=== PATIENT | male | born 1955 | race Caucasian/White ===

== ENCOUNTER 2016-12-12 08:56 | Emergency (ER) | payer BC ==
[2016-12-12] MEDS ORDERED: Acetaminophen/oxyCODONE 325-5 MG Tab PO ONE (09:33)
--- NOTE | 2016-12-12 09:33 | EDM.PDOC ---
ED HPI GENERAL MEDICAL PROBLEM - General Chief Complaint: Upper Extremity Injury/Pain Stated Complaint: LEFT SHOULDER PAIN Time Seen by Provider: 12/12/16 09:23 Source of Information: Reports: Patient History Limitations: Reports: No Limitations - History of Present Illness INITIAL COMMENTS - FREE TEXT/NARRATIVE: 60-year-old male attends the ED with complaints of severe pain in his left upper shoulder. Been present for 2 days. No known injuries. More or less awoke with this pain 2 days ago. It is sharp and stabbing and better with certain movements but worse when he's standing or sitting. Better when he is lying down. No pain in his cervical spine. He has full unopposed range of motion of his arm. Pain is in the distribution of the upper shoulder trapezius muscle. Finds he gets some relief of the pushes hard at the base of his left skull. Again insertion site of the trapezius. 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 Cardiovascular History: Reports: Afib (Is on Eliquis for this.), High Cholesterol, Hypertension Oncologic (Cancer) History: Reports: Breast, Other (See Below) Other Oncologic History: was on Tamoxifen for five yrs, completed. 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 Denies: Chest Pain, Edema GI/Abdominal: Reports: No Symptoms Genitourinary: Reports: No Symptoms Musculoskeletal: Reports: Shoulder Pain Skin: Reports: No Symptoms (Reason for coming to the ED.) Neurological: Reports: No Symptoms ED EXAM, GENERAL - Physical Exam Exam: See Below Exam Limited By: No Limitations General Appearance: Alert, WD/WN, No Apparent Distress Throat/Mouth: Normal Inspection, Normal Lips, Normal Teeth, Normal Oropharynx Head: Atraumatic, Normocephalic Neck: Other (Pain is localized to the superior belly of the trapezius muscle and levator scapular muscle. I did identify suspect T2 rib head subluxation as this is maximal point of tenderness. This is likely the cause of the overlying muscle spasm. He has full unopposed range of motion of his cervical spine.) Respiratory/Chest: No Respiratory Distress, Lungs Clear, Normal Breath Sounds, No Accessory Muscle Use, Prolonged Expiration Cardiovascular: Normal Peripheral Pulses, Regular Rate, Rhythm, No Edema, No Gallop, No Murmur Peripheral Pulses: 1+: Carotid (L), Carotid (R), Brachial (L), Brachial (R), Radial (L), Radial (R), Femoral (L), Femoral (R), Popliteal (L), Popliteal (R), Posterior Tibial (L), Posterior Tibial (R), Dorsalis Pedis (L), Dorsalis Pedis ( R) Back Exam: Other (No other muscle spasm identified on palpation of the cervicals spine or the thoracic spine. Only overlying the T2) Extremities: Normal Inspection, Normal Range of Motion, Non-Tender, No Pedal Edema, Normal Capillary Refill, Other Neurological: Alert, Oriented (No evidence of any problems with his left shoulder in terms of all the rotator cuff tendons are intact.), CN II-XII Intact , Normal Cognition, Normal Gait Course - Vital Signs Last Recorded V/S: Last Vital Signs Temp 35.8 C 12/12/16 09:05 Pulse 62 12/12/16 09:05 Resp 17 12/12/16 09:05 BP 153/74 H 12/12/16 09:05 Pulse Ox 97 12/12/16 09:05 - Orders/Labs/Meds Meds: Medications Discontinued Medications Generic Name Dose Route Start Last Admin Trade Name Francisco PRN Reason Stop Dose Admin Oxycodone/Acetaminophen 1 tab 12/12/16 09:33 Percocet 325-5 Mg PO 12/12/16 09:34 ONETIME ONE Prednisone 30 mg 12/12/16 09:34 Prednisone PO 12/12/16 09:35 ONETIME ONE - Radiology Interpretation Free Text/Narrative:: 60-year-old male presents to the ED with 2 day history of pain in his left upper neck. No known injuries. Examination shows full unopposed range of motion of his cervical spine. No problems identified in the shoulder in terms of rotator cuff tendinopathy etc. He has pain well localized to the superior belly of the trapezius muscle and levator scapular muscle group. There is marked pain on palpation of the T2 spinous process. I suspect rib head subluxation in this area. I'm therefore going to send him to the chiropractor for manipulation ` health group will see him this morning. He is on Eliquis and therefore cannot take anti-inflammatories. Therefore try him on prednisone given him 30 mg by mouth now and then 20 twice daily for 5 more days. Percocet tablet 08/22/24 one tablet every 4-6 hours necessary for pain relief 10 tablets provided. Departure - Departure Time of Disposition: :34 Disposition: Home, Self-Care 01 Condition: Fair Clinical Impression: Trapezius muscle spasm - Discharge Information Prescriptions: Prednisone [IJD: predniSONE] 20 mg PO BID #10 tab oxyCODONE HCl/Acetaminophen [Percocet 5-325 mg Tablet] 1 - 2 each PO Q4H PRN # 10 tablet PRN Reason: pain relief. Referrals: Kya Tinajero [employer] [Primary Care Provider] - Forms: ED Department Discharge Additional Instructions: Evaluation the emergency room this morning in regards to pain throughout the left upper neck in the distribution of the trapezius and levator scapulae muscles. There is marked spasm of these muscles causing pain. There seems to be no problem with her cervical spine and certainly no performed related to the shoulder in terms of rotator cuff injury etc. Apply that there appears to be a rib head subluxation at the T2 level. The cause of the overlying muscle spasm. Ideally this needs to be treated by a chiropractor. [facility] and one of the guys will see you there this morning as soon as you arrived. Therefore members [phone] there are addresses for [address] Dr[address] Kuhn or Dr. Bishop will see you this morning. 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 Last about 4 hours.-Also Deltasone 30 mg was given in the ED.. You could take her next dose 20 mg after supper tonight. States take one tablet twice daily morning and bedtime for the next 5 days to clear up inflammation. 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 Usually things settle down after chiropractic take manipulation within a day or 2.
[2016-12-12] MEDS ORDERED: predniSONE 20 MG Tab PO ONE (09:34)
[2016-12-12 10:03] VITALS: BP 132/76
== END 2016-12-12 09:56 | disposition home or self-care (01) ==
LOC: JD.ED 08:56
DX: M62.830 Muscle spasm of back (principal); I10 Essential (primary) hypertension; E78.00 Pure hypercholesterolemia, unspecified; Z85.3 Personal history of malignant neoplasm of breast; I48.91 Unspecified atrial fibrillation
CPT/HCPCS: 99283; A9270

== ENCOUNTER 2018-08-26 06:57 | Emergency (ER) | payer BC ==
[2018-08-26] MEDS ORDERED: Oxymetazoline 0.05% Nasal Spray 30 ML Bottle ONE (07:21)
--- NOTE | 2018-08-26 08:13 | EDM.PDOC ---
ED HPI GENERAL MEDICAL PROBLEM - General Chief Complaint: ENT Problem Stated Complaint: NOSEBLEED Time Seen by Provider: 08/26/18 07:10 - History of Present Illness INITIAL COMMENTS - FREE TEXT/NARRATIVE: 62-year-old male presents emergency room with a nosebleed This started early this morning about an hour before coming into the emergency room. Upon arrival here he did not have control of this. Patient is on Eliquis for chronic A. fib. The patient has not had any palpitations or any other symptoms no chest pain chest pressure breathing difficulties or shortness of breath. The patient has had some mild nose bleeds easy to control the last couple of mornings. - Related Data Allergies Allergy/AdvReac Type Severity Reaction Status Date / Time No Known Allergies Allergy Verified 08/26/18 07:12 Home Meds: Home Meds Apixaban [Eliquis] 5 mg PO BID 08/26/18 [History] Past Medical History HEENT History: Reports: Impaired Vision Other HEENT History: wears eyeglasses. Cardiovascular History: Reports: Afib, High Cholesterol, Hypertension Oncologic (Cancer) History: Reports: Breast, Other (See Below) Other Oncologic History: was on Tamoxifen for five yrs, completed. Social & Family History - Tobacco Use Smoking Status *Q: Never Smoker Second Hand Smoke Exposure: No - Caffeine Use Caffeine Use: Reports: Soda - Recreational Drug Use Recreational Drug Use: No - Living Situation & Occupation Living situation: Reports: with Significant Other Occupation: Employed ED ROS ENT - Review of Systems Review Of Systems: See Below Constitutional: Reports: No Symptoms HEENT: Reports: Nosebleed Respiratory: Reports: No Symptoms Cardiovascular: Reports: No Symptoms GI/Abdominal: Reports: No Symptoms Neurological: Reports: No Symptoms ED EXAM, ENT - Physical Exam Exam: See Below Exam Limited By: No Limitations General Appearance: Alert, No Apparent Distress Nose: Other (Bleeding from the left naris appears to be anterior controlled with direct pressure.) Mouth/Throat: Normal Inspection, Other (He had scant amount of blood down the posterior pharynx this cleared after his bleeding stopped) Head: Atraumatic, Normocephalic Respiratory/Chest: No Respiratory Distress, Lungs Clear, Normal Breath Sounds Cardiovascular: No Edema, No Murmur, Irregularly Irregular GI/Abdominal: Normal Bowel Sounds, Soft, Non-Tender ED ENT PROCEDURES - Epistaxis Procedure Indication: Uncontrolled Recent anticoagulants/antiplatlets: Yes (Patient is on Eliquis he's had mild nosebleeds last several days) Uncontrolled HTN: No Recent septal/nasal surgery: No Site of bleeding: Left Nare Clearing of clots: Patient Blew Nose Topical Meds: Other (2 squirts of Afrin was used after he stopped bleeding and after he blew his nose this was done after 15 minutes of firm pressure squeezing the anterior nose from side to side. The direct pressure stopped the bleeding the patient tolerated everything fairly well) Course - Vital Signs Last Recorded V/S: Last Vital Signs Temp 36.0 C 08/26/18 07:00 Pulse 70 08/26/18 07:00 Resp 20 08/26/18 07:00 BP 155/101 H 08/26/18 07:00 Pulse Ox 96 08/26/18 07:00 - Orders/Labs/Meds Meds: Medications Discontinued Medications Generic Name Dose Route Start Last Admin Trade Name Ericq PRN Reason Stop Dose Admin Oxymetazoline HCl Confirm 08/26/18 07:21 Nasal Decongestant [place] Administered 08/26/18 07:22 Dose 30 ml .ROUTE .STK-MED ONE - Re-Assessments/Exams Free Text/Narrative Re-Assessment/Exam: 08/26/18 08:13 Patient presented with anterior nosebleed pretty brisk initially this was controlled with direct pressure. After direct pressure of the patient blew his nose removing a few clots. Then 2 squirts of Afrin were placed in the nose the patient was observed for an hour his vital signs remained stable he did not have any bleeding recurrence. He is no longer bleeding posterior pharynx is clear. We discussed lab work he is having this done next week a CBC disclosed to his bleeding would not be that accurate. He is not having any symptoms to suggest a problem. Departure - Departure Time of Disposition: 08:17 Disposition: Home, Self-Care 01 Clinical Impression: Anterior epistaxis - Discharge Information Instructions: Nosebleed, Adult Referrals: Fannie Gill PA-C [Primary Care Provider] - Forms: ED Department Discharge Additional Instructions: Return to emergency room if any questions problems worsening symptoms. Follow-up with your regular provider at the end of this week. Use Preparation H from a new tube to the inside of her nose as we discussed do not scrub or rub it on gently roll it on using a Q-tip. Do this several times a day. You may also use K-Y jelly small amount to the outside of the undersurface of the nose. If the bleeding returns apply direct pressure as we discussed in return to the emergency room
[2018-08-26 08:40] VITALS: BP 119/85
[2018-08-26] MEDS ORDERED: Oxymetazoline 0.05% Nasal Spray 30 ML Bottle NAS ONE (08:59)
== END 2018-08-26 08:35 | disposition home or self-care (01) ==
LOC: JD.ED 06:57
DX: R04.0 Epistaxis (principal); I48.91 Unspecified atrial fibrillation; I10 Essential (primary) hypertension; Z79.01 Long term (current) use of anticoagulants
CPT/HCPCS: 99282; 99283

== ENCOUNTER 2019-05-19 13:44 | Emergency (ER) | payer BC ==
[2019-05-19] MEDS ORDERED: Sodium Chloride 0.9% 1,000 ML ONE (14:00)
[2019-05-19] MEDS ORDERED: Sodium Chloride 0.9% 10 ML Syringe FLUSH PRN ×2 (14:12→14:32)
[2019-05-19] MEDS ORDERED: Iopamidol 612 MG/ML 100 ML Bottle IVPUSH ONE (14:12)
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
[2019-05-19] MEDS ORDERED: Sodium Chloride 0.9% 1,000 ML IV SCH (14:45)
--- NOTE | 2019-05-19 15:02 | CT ---
Head CT Technique: Multiple axial sections through the brain were obtained. Intravenous contrast was not utilized. Comparison: No prior intracranial imaging is available. Findings: Ventricles along with basal cisterns and sulci over the convexities are mildly prominent. No abnormal parenchymal densities are seen. No evidence of intracranial hemorrhage. No midline shift or mass effect is seen. Visualized paranasal sinuses show nothing acute. Mastoid sinuses shows minimal mucosal thickening on the left side. No acute calvarial finding is seen. Impression: 1. Mild generalized atrophy. 2. No acute intracranial abnormality is seen. 3. Minimal mastoid sinus finding which is believed to be incidental. Diagnostic code #2 Study was dictated in [place] Standard Time
--- NOTE | 2019-05-19 15:23 | CT ---
CT cervical spine Technique: Multiple axial sections were obtained from above C1 inferiorly to the top of T3. Reconstructed sagittal and coronal images were reviewed. Findings: Posterior skull base is intact. Disc space narrowing is noted throughout the cervical spine with anterior osteophytes. Anterior osteophytes most prominent at C5-C6. Mild posterior osteophytes are also noted. Diffuse degenerative apophyseal change is noted throughout the cervical spine. No fracture is identified. No acute subluxation is seen. Multiple levels of neural foraminal stenosis are noted throughout the cervical spine. Diffuse degenerative change is noted throughout the uncovertebral joints. Impression: 1. Diffuse degenerative change. 2. No acute fracture or acute subluxation is appreciated. Diagnostic code #2 Study was dictated in [place] Standard Time
--- NOTE | 2019-05-19 15:23 | CT ---
CT chest Technique: Multiple axial sections through the chest were obtained. Intravenous contrast was utilized. Comparison: No prior chest imaging. Findings: Heart is enlarged. Coronary artery calcification is seen. No pericardial thickening is seen. Aorta shows no aneurysm. Mediastinum and hilar regions show no abnormality. No axillary adenopathy is seen. Surgical clips are seen within the left axillary region. Lungs shows a small 4 mm nodule within the right lung base and within the right middle lobe. No acute parenchymal process is seen. No pulmonary contusion or hemorrhage is seen. No pleural effusions are seen. Several old healed left-sided rib fractures are noted. No acute fracture is appreciated. Slight degenerative spurring noted within the spine. No acute osseous finding is seen within the chest. Impression: 1. 2 small pulmonary nodules. These can be ignored if patient is not a smoker. If patient is a smoker recommend noncontrast chest CT study in one year. 2. Cardiomegaly and coronary artery calcification. 3. Nothing acute is appreciated. Diagnostic code #3 CT abdomen and pelvis Technique: Multiple axial sections were obtained from above the dome of the diaphragm inferiorly to the pubic symphysis. Intravenous contrast was utilized. No oral contrast has been given. Findings: Prostate gland is enlarged. Liver contains no focal abnormality. Spleen appears within normal limits. Adrenal glands show no nodule. Pancreas shows no discrete abnormality. Kidneys show symmetric contrast enhancement. Parapelvic cyst is noted within the lower left kidney measuring 2.5 cm. Aorta shows no aneurysm. No retroperitoneal adenopathy or mesenteric abnormalities are seen. No pelvic mass or adenopathy is seen. No free fluid or inflammatory change is seen. Hazy subcutaneous density is noted within the anterior lower abdominal wall possibly due to mild edema. Bone window settings were reviewed which shows degenerative change within the lower lumbar spine. Chronic spondylolytic defects are seen at L5-S1 with spondylolisthesis of 1 cm also seen at L5-S1. No acute osseous finding is seen. Delayed images shows contrast within the distal ureters and within the bladder. Appendix felt to be visualized and within normal limits. Impression: 1. Findings as noted above. 2. No acute intra-abdominal or intrapelvic abnormality is seen. Diagnostic code #2 Study was dictated in [place] Standard Time
[2019-05-19 16:41] VITALS: BP 149/87; PULSE 76
== END 2019-05-19 16:18 | disposition home or self-care (01) ==
LOC: JD.ED 13:44
DX: S00.01XA Abrasion of scalp, initial encounter (principal); R10.12 Left upper quadrant pain; M25.512 Pain in left shoulder; R07.89 Other chest pain; I48.91 Unspecified atrial fibrillation; I10 Essential (primary) hypertension; Z79.01 Long term (current) use of anticoagulants; V53.5XXA Driver of pick-up truck or van injured in collision with car, pick-up truck or van in traffic accident, initial encounter; Y92.410 Unspecified street and highway as the place of occurrence of the external cause
CPT/HCPCS: 36415; 70450; 71260; 72125; 74177; 80053; 82150; 85025; 85610; 85730; 86850; 86900; 86901; 93005; 96360; 99285; J7030; Q9967; 93010; 99283

== ENCOUNTER → 2020-10-13 | Day surgery (SDC) | payer MEDICARE, BC ==
--- NOTE | 2020-10-13 12:49 | CT ---
CT right knee Technique: Multiple axial sections were obtained through the right hip and right ankle. Additional axial views were obtained of the right knee with reconstructed coronal and sagittal images obtained. Comparison: No prior CT knee exam is available. Findings: Axial views of the right hip show nothing acute. Axial views of the right ankle show nothing acute. Patellofemoral joint shows narrowing as well as osteophytes. There is fairly severe medial joint space narrowing being noted. Lateral joint space shows some articular irregularity. Osteophyte are seen within the distal femoral notch as well as within the medial and lateral knees. Impression: 1. Degenerative change as described above most prominent within the right knee. Diagnostic code #2
== END ==
LOC: JD.CT 10:04
PROVIDERS: ATTEND Orthopaedic Surgery
DX: M17.0 Bilateral primary osteoarthritis of knee (principal)
CPT/HCPCS: 73700-26-RT; 73700-RT

== ENCOUNTER → 2020-10-13 | Day surgery (SDC) | payer MEDICARE, BC | LOC: JD.LAB 11:29 | PROVIDERS: ATTEND Orthopaedic Surgery | DX: Z01.812 Encounter for preprocedural laboratory examination (principal); M17.0 Bilateral primary osteoarthritis of knee | CPT/HCPCS: 87641 ==

== ENCOUNTER 2020-10-19 06:57 | Day surgery (SDC) | payer MEDICARE, BC ==
[~2020-10-19 06:57] MED LIST: Acetaminophen 325 MG Tab PO SCH; Lactated Ringers 1,000 ML IV SCH; Lidocaine 1%/Sod Bicarbonate in NS 8.4% 1 ML Syringe IDERM PRN; Morphine 8 MG, EPINEPHrine 0.3 MG, Cefuroxime 750 MG, Ketorolac 30 MG, Sodium Chloride ... PRN; Pregabalin 25 MG Cap PO SCH; Sodium Chloride 0.9% 10 ML Syringe FLUSH PRN; oxyCODONE ER 10 MG TAB.ER PO SCH
[2020-10-19] MEDS ORDERED: Lidocaine 1% 4 ML ONE (07:14)
[2020-10-19] MEDS ORDERED: Midazolam 1 MG/ML 2 ML SDV ONE ×2 (07:14→08:21)
[2020-10-19] MEDS ORDERED: fentaNYL 100 MCG/2 ML SDV ONE (07:14)
[2020-10-19] MEDS ORDERED: Propofol 200 MG/20 ML SDV ONE ×3 (07:14→09:35)
[2020-10-19] MEDS ORDERED: ceFAZolin 1 GM Vial ONE ×2 (07:15→08:05)
[2020-10-19] MEDS ORDERED: EPINEPHrine 1 MG/ML SDV ONE (07:20)
[2020-10-19] MEDS ORDERED: Ropivacaine 0.5% 5 MG/ML 30 ML SDV ONE (07:20)
--- NOTE | 2020-10-19 07:47 | PCM.PREANE ---
Preanesthetic Assessment - Procedure Proposed Procedure: right total knee arthroplasty - Anesthesia/Transfusion/Family Hx Anesthesia History: Prior Anesthesia Without Reaction Family History of Anesthesia Reaction: No Transfusion History: No Prior Transfusion(s) - Review of Systems General: No Symptoms Pulmonary: No Symptoms Cardiovascular: No Symptoms Gastrointestinal: No Symptoms Neurological: No Symptoms Other: Reports: None - Physical Assessment NPO Status Date: 10/18/20 NPO Status Time: 18:30 Vital Signs: 154/89 64 97% 18 Height: 6 ft 1 in Weight: 133.3 kg ASA Class: 3 Mental Status: Alert & Oriented x3 Airway Class: Mallampati = 1 Dentition: Reports: Normal Dentition Thyro-Mental Finger Breadths: 3 Mouth Opening Finger Breadths: 3 ROM/Head Extension: Full Lungs: Clear to Auscultation, Normal Respiratory Effort Cardiovascular: Regular Rate, Regular Rhythm - Allergies Allergies/Adverse Reactions: Allergies Allergy/AdvReac Type Severity Reaction Status Date / Time No Known Allergies Allergy Verified 10/19/20 07:33 - Blood Blood Available: No - Anesthesia Plan Beta Khoa: Metoprolol Med Last Dose Date: 10/19/20 Med Last Dose Time: 05:30 - Acknowledgements Anesthesia Type Planned: Spinal Pt an Appropriate Candidate for the Planned Anesthesia: Yes Alternatives and Risks of Anesthesia Discussed w Pt/Guardian: Yes Pt/Guardian Understands and Agrees with Anesthesia Plan: Yes PreAnesthesia Questionnaire HEENT History: Reports: Impaired Vision Other HEENT History: wears eyeglasses. Cardiovascular History: Reports: Afib, High Cholesterol, Hypertension, Other (See Below) Other Cardiovascular History: left ventricular hypertrophy, left atrial enlargement, history of cardioversion Respiratory History: Reports: Sleep Apnea (cpap) Gastrointestinal History: Reports: None Genitourinary History: Reports: Other (See Below) Other Genitourinary History: elevated PSA NEWS ASSISTANT History: Reports: None Musculoskeletal History: Reports: Arthritis, Gout, Other (See Below) Other Musculoskeletal History: right de quervain's tenosynovitis, left tibial plateau fracture Neurological History: Reports: None Psychiatric History: Reports: None, Other (See Below) Other Psychiatric History: insomnia Endocrine/Metabolic History: Reports: Obesity/BMI 30+ Hematologic History: Reports: None Immunologic History: Reports: None Oncologic (Cancer) History: Reports: Breast, Other (See Below) Other Oncologic History: was on Tamoxifen for five yrs, completed. Dermatologic History: Reports: Other (See Below) Other Dermatologic History: skin lesions with excisions - Past Surgical History Head Surgeries/Procedures: Reports: None Cardiovascular Surgical History: Reports: None Respiratory Surgical History: Reports: None GI Surgical History: Reports: Colonoscopy Female Surgical History: Reports: None Male Surgical History: Reports: None Endocrine Surgical History: Reports: None Neurological Surgical History: Reports: None Musculoskeletal Surgical History: Reports: Other (See Below) Other Musculoskeletal Surgeries/Procedures:: left knee surgery Oncologic Surgical History: Reports: Mastectomy Dermatological Surgical History: Reports: None - SUBSTANCE USE Tobacco Use Status *Q: Former Tobacco User Tobacco Use Within Last Twelve Months: No Second Hand Smoke Exposure: No Days Per Week of Alcohol Use: 2 Number of Drinks Per Day: 1 Total Drinks Per Week: 2 Recreational Drug Use History: No - HOME MEDS Home Medications: Home Meds Apixaban [Eliquis] 5 mg PO BID 08/26/18 [History] Acetaminophen [Tylenol] 650 mg PO Q4H PRN 10/18/20 [History] Clobetasol [Temovate 0.05%] 1 dose TOP ASDIRECTED PRN 10/18/20 [History] Cyclobenzaprine [Flexeril] 10 mg PO BID PRN #20 tab 10/18/20 [Rx] Finasteride [Proscar] 5 mg PO DAILY 10/18/20 [History] HCTZ/Triamterene [Maxzide 25-37.5 MG] 1 tab PO DAILY 10/18/20 [History] Metoprolol Succinate 50 mg PO BID 10/18/20 [History] Pravastatin [Pravachol] 20 mg PO DAILY 10/18/20 [History] allopurinoL [Zyloprim] 300 mg PO DAILY 10/18/20 [History] dilTIAZem HCL [Cardizem Cd] 240 mg PO DAILY 10/18/20 [History] lisinopriL [Prinivil] 40 mg PO DAILY 10/18/20 [History] oxyCODONE 5 - 10 mg PO Q4H PRN #40 tab 10/18/20 [Rx] - CURRENT (IN HOUSE) MEDS Current Meds: Current Medications Acetaminophen (Acetaminophen 325 Mg Tab) 975 mg PO ONETIME JIMMIE Stop: 10/19/20 14:00 Last Admin: 10/19/20 07:26 Dose: 975 mg Documented by: Morphine Sulfate 8 mg/Epinephrine HCl 0.3 mg/Cefuroxime Sodium 750 mg/Ketorolac Tromethamine 30 mg/Sodium Chloride 7.9 ml 0 mg .XX ASDIRECTED PRN PRN Reason: Pain Stop: 10/19/20 18:00 Lactated Ringer's (Ringers, Lactated) 1,000 mls @ 125 mls/hr IV ASDIRECTED JIMMIE Stop: 10/19/20 23:00 Last Admin: 10/19/20 07:15 Dose: 125 mls/hr Documented by: Lidocaine/Sodium Bicarbonate (Lidocaine 1%/Sod Bicarbonate In Ns 8.4% 1 Ml Syringe) 0.25 ml IDERM ONETIME PRN PRN Reason: Prior to IV Start Stop: 10/19/20 18:00 Last Admin: 10/19/20 07:15 Dose: 0.25 ml Documented by: Oxycodone HCl (Oxycodone Er 10 Mg Tab.Er) 10 mg PO ONETIME JIMMIE Stop: 10/19/20 14:00 Last Admin: 10/19/20 07:26 Dose: 10 mg Documented by: Pregabalin (Pregabalin 25 Mg Cap) 50 mg PO ONETIME JIMMIE Stop: 10/19/20 14:00 Last Admin: 10/19/20 07:26 Dose: 50 mg Documented by: Sodium Chloride (Sodium Chloride 0.9% 10 Ml Syringe) 10 ml FLUSH ASDIRECTED PRN PRN Reason: Keep Vein Open Stop: 10/19/20 18:00 Discontinued Medications Cefazolin Sodium (Cefazolin 1 Gm Vial) Confirm Administered Dose 2 gm .ROUTE .STK-MED ONE Stop: 10/19/20 07:16 Epinephrine HCl (Epinephrine 1 Mg/Ml Sdv) Confirm Administered Dose 1 mg .ROUTE .STK-MED ONE Stop: 10/19/20 07:21 Fentanyl (Fentanyl 100 Mcg/2 Ml Sdv) Confirm Administered Dose 100 mcg .ROUTE .STK-MED ONE Stop: 10/19/20 07:15 Lidocaine HCl (Xylocaine-Mpf 1%) Confirm Administered Dose 4 mls @ as directed .ROUTE .STK-MED ONE Stop: 10/19/20 07:15 Midazolam HCl (Midazolam 1 Mg/Ml 2 Ml Sdv) Confirm Administered Dose 2 mg .ROUTE .STK-MED ONE Stop: 10/19/20 07:15 Propofol (Propofol 200 Mg/20 Ml Sdv) Confirm Administered Dose 400 mg .ROUTE .STK-MED ONE Stop: 10/19/20 07:15 Ropivacaine (Ropivacaine 0.5% 5 Mg/Ml 30 Ml Sdv) Confirm Administered Dose 30 ml .ROUTE .STK-MED ONE Stop: 10/19/20 07:21 Tranexamic Acid (Tranexamic Acid 1,000 Mg/10 Ml Amp) Confirm Administered Dose 1,000 mg .ROUTE .STK-MED ONE Stop: 10/19/20 07:25 Vancomycin HCl (Vancomycin 1 Gm Sdv) Confirm Administered Dose 1 gm .ROUTE .STK- MED ONE Stop: 10/19/20 07:25
[2020-10-19] MEDS ORDERED: Lactated Ringers 1,000 ML ONE ×2 (08:30→09:24)
[2020-10-19] MEDS ORDERED: fentaNYL 100 MCG/2 ML SDV IVPUSH PRN (08:31)
[2020-10-19] MEDS ORDERED: HYDROmorphone 0.5 MG/0.5 ML Syringe IVPUSH PRN (08:31)
[2020-10-19] MEDS ORDERED: Ondansetron 4 MG/2 ML SDV IVPUSH PRN (08:31)
[2020-10-19] MEDS ORDERED: ePHEDrine 50 MG/ML SDV ONE (08:32)
[2020-10-19] MEDS: Vancomycin 1 GM SDV ONE ×2 (09:23→09:53)
[2020-10-19] MEDS ORDERED: Ketorolac 15 MG/ML SDV ONE (09:55)
--- NOTE | 2020-10-19 10:20 | PCM.POSTAN ---
POST ANESTHESIA ASSESSMENT - MENTAL STATUS Mental Status: Alert, Oriented - VITAL SIGNS Vital Signs: Last Vital Signs Temp 97.0 F 10/19/20 07:08 Pulse 64 10/19/20 07:08 Resp 18 10/19/20 07:08 BP 144/89 H 10/19/20 07:17 Pulse Ox 97 10/19/20 07:08 1015 112/67 98% 86 23 97.2 - RESPIRATORY Respiratory Status: Respiratory Rate WNL, Airway Patent, O2 Saturation Stable, Supplemental Oxygen - CARDIOVASCULAR CV Status: Pulse Rate WNL, Blood Pressure Stable - GASTROINTESTINAL GI Status: No Symptoms - PAIN Pain Score: 0 - POST OP HYDRATION Hydration Status: Adequate & Stable
--- NOTE | 2020-10-19 10:42 | PCM.SN.2 ---
- Free Text/Narrative Note: Right selective femoral nerve block at the adductor canal for post-procedure pain control under US guidance requested by Dr. Calero. Date: 10/19/2020 Time Out: 1025 Start: 1025 End: 103 Chart reviewed. Consent signed. Questions answered. Appropriate monitors applied. Time out performed. Right mid-shaft femur identified with ultrasound, scanning medially of femur, the femoral artery in the adductor canal visualized, and the femoral nerve located laterally to the artery. The skin was prepped lateral to the ultrasound probe with chlorahexadine times two. The 21ga 4 insulated block needle was inserted under direct ultrasound guidance into the adductor canal. 25mL of 0.5% ropivacaine with 1:200,000 epinephrine was injected circumferentially around the nerve with intermittent negative aspiration noted. Patient tolerated the procedure well. Sterile technique noted along with sterile gloves, mask, and sterile probe cover. See picture on progress note and vital signs on nurses notes. Block completed in PACU. Judith Castrejon CRNA
--- NOTE | 2020-10-19 11:33 | CR ---
Right knee: AP and lateral views of the right knee were obtained. Comparison: Prior right knee CT study of 10/13/20. Knee prosthesis is seen. Components are aligned. Patellar prosthesis is also noted. Soft tissue air is seen. Impression: 1. Satisfactory post-op radiographic appearance of recently placed right knee prostheses. Diagnostic code #1
[2020-10-19] MEDS ORDERED: oxyCODONE 5 MG Tab PO PRN (11:40)
[2020-10-19] MEDS ORDERED: Cyclobenzaprine 10 MG Tab PO ONE (12:00)
--- NOTE | 2020-10-19 13:58 | PCM48HPAN ---
Post Anesthesia Note - EVALUATION WITHIN 48HRS OF ANESTHETIC Vital Signs in Normal Range: Yes Patient Participated in Evaluation: No (Visited with nurse- just left) Respiratory Function Stable: Yes Airway Patent: Yes Cardiovascular Function Stable: Yes Hydration Status Stable: Yes Pain Control Satisfactory: Yes Nausea and Vomiting Control Satisfactory: Yes Mental Status Recovered: Yes Vital Signs: Last Vital Signs Temp 98.0 F 10/19/20 11:15 Pulse 86 10/19/20 12:02 Resp 17 10/19/20 12:02 BP 132/86 10/19/20 12:02 Pulse Ox 93 L 10/19/20 12:02
[2020-10-19 15:19] VITALS: BP 129/71; PULSE 76
--- NOTE | 2020-10-26 12:56 | PCM.OPNOTE ---
- General Post-Op/Procedure Note Date of Surgery/Procedure: 10/19/20 Operative Procedure(s): right total knee arthroplasty with styker chin robotic assist Pre Op Diagnosis: right knee osteoarthritis Post-Op Diagnosis: Same Anesthesia Technique: Local, MAC, Spinal Primary Surgeon: Rudi Calero Anesthesia Provider: Judith Castrejon Teaching Fellow: Marlen Villavicencio Teaching Fellow: Annamarie De Dios EBL in mLs: 200 Complications: None Condition: Good Free Text/Narrative:: 10/26 9mm 35x10
--- NOTE | 2020-10-27 12:42 | OR ---
DATE OF OPERATION: 10/19/2020 SURGEON: Rudi Calero MD OPERATION PERFORMED: Right total knee arthroplasty with [place] robotic assist. PREOPERATIVE DIAGNOSIS: Right knee osteoarthrosis. POSTOPERATIVE DIAGNOSIS: Right knee osteoarthrosis. ANESTHESIA: Local MAC with spinal. ANESTHESIA PROVIDER: Judith Castrejon CRNA. ASSISTANTS: Marlen Villavicencio PA-C, and Annamarie De Dios LPN. ESTIMATED BLOOD LOSS: 200 mL. COMPLICATIONS: None. CONDITION: Stable. IMPLANTS: 1. April size 7 press-fit CR femur. 2. [place] size 7 press-fit tibial baseplate. 3. [place] size 7 9 mm CS polyethylene insert. 4. April size 35 x 10 mm press-fit patella. DESCRIPTION OF PROCEDURE: The patient was identified in the preoperative holding area. Proper site was marked and identified by the surgeon. The patient was taken back to the operating theater where after anesthesia, the patient had a nonsterile tourniquet applied to the right lower extremity. Right lower extremity was then sterilely prepped and draped in the usual sterile fashion. OR time-out was performed. Patient received 2 g IV Ancef. Right lower extremity was then exsanguinated. Tourniquet was insufflated to 250 mm mmHg. Standard anterior incision was made. Medial parapatellar arthrotomy was created. Deep fibers of the MCL were raised and anterior fat pad was resected. At this time, attention was turned to the patella. Patella measured 25 dissected to 14 for 35 x 10 mm patella. Drill holes were drilled, found to be adequate. At this time, attention was turned to the femur. Two 4.0 Schanz pins were then placed intra- incisionally in the femur for the April [place] robotic array. Another two were placed in the tibia 3 fingerbreadths below the tibial tubercle for the tibial [place] Juan [place] robotic array. Checkpoints were placed in the femur and the tibia. Hip center rotation was obtained. Medial and lateral malleoli were marked. The check points were then marked. 40 points were then obtained off both the femur and the tibia for the [place] robotic plan. The patient's knee was brought to full extension. It was noted to be lacking roughly 6 degrees of extension. Varus valgus stresses were applied and then at 90 degrees of flexion, varus valgus stresses were applied. The patient was brought to 20 mm extension and flexion gaps. A straight saw blade was then brought down the [employer] robotic arm. The tibial cut was completed as well as posterior femoral cut, anterior femoral cut and anterior chamfer cut. A saw blade was then switched and the distal femoral cut as well as posterior chamfer cut was completed and found to be adequate. All bony fragments were removed. Medial and lateral menisci were resected. Posterior osteophytes were removed. At this time, size 7 base plate was placed and size 7 trial femur was placed. The patient had a 9 mm poly placed. The patient had full extension, full flexion, no signs of liftoff. Femoral drill holes were then drilled and found to be adequate. The tibia was stamped and drilled in the proper rotation. All trial implants were removed. The size 7 tibia was then impacted into place, size 7 femur was impacted into place, 9 mm CS polyethylene insert was placed. The patient's knee was brought into full extension. A 35 x 10 mm patellar was then press-fit into place. The tourniquet was deflated. Bleeders were cauterized. 1 L pulse lavage irrigation with Ancef was irrigated through the knee along with 400 mL Irrisept irrigation. Topical tranexamic acid and vancomycin powder as well as a periarticular injection was completed. #2 barbed suture was used for closure of the medial parapatellar arthrotomy. 2-0 Vicryl and Stratafix was used for subcutaneous closure. Pinning was used for skin closure. The patient tolerated the procedure well and was sent to the PACU in stable condition. MINA /[id number]
== END 2020-10-19 13:51 | disposition home or self-care (01) ==
LOC: JD.SDS 06:57
PROVIDERS: ATTEND Orthopaedic Surgery
DX: M17.0 Bilateral primary osteoarthritis of knee (principal); M25.761 Osteophyte, right knee; I10 Essential (primary) hypertension; E78.5 Hyperlipidemia, unspecified; M10.9 Gout, unspecified; Z87.891 Personal history of nicotine dependence; Z85.3 Personal history of malignant neoplasm of breast
CPT/HCPCS: 27447; 73560; 97110; 97116; 97161; A9270; C1713; C1776; J0171; J0690; J0697; J1885; J2250; J2270; J2704; J2795; J3010; J3370; J7120; 01402; 64450; 76942

== ENCOUNTER 2021-10-26 07:40 | Day surgery (SDC) | payer MEDICARE, BC ==
[~2021-10-26 07:40] MED LIST changes: -Acetaminophen 325 MG Tab PO SCH; +EPINEPHrine 1 MG/ML SDV ONE; -Pregabalin 25 MG Cap PO SCH; +Ropivacaine 0.5% 5 MG/ML 30 ML SDV ONE; +Scopolamine 1.5 MG Transdermal Patch TRDERM PRN; +Sodium Chloride 0.9% 10 ML Syringe FLUSH SCH; +Vancomycin 1 GM SDV ONE; -oxyCODONE ER 10 MG TAB.ER PO SCH
[2021-10-26] MEDS ORDERED: Lactated Ringers 1,000 ML ONE (07:55)
[2021-10-26] MEDS ORDERED: Lidocaine 1% 4 ML ONE (07:55)
[2021-10-26] MEDS ORDERED: Midazolam 1 MG/ML 2 ML SDV ONE ×2 (07:55→09:33)
[2021-10-26] MEDS ORDERED: ceFAZolin 2 GM Vial ONE ×2 (07:55→08:16)
[2021-10-26] MEDS ORDERED: Ondansetron 4 MG/2 ML SDV ONE (07:55)
[2021-10-26] MEDS ORDERED: Ketorolac 30 MG/ML SDV ONE (07:55)
[2021-10-26] MEDS ORDERED: fentaNYL 100 MCG/2 ML SDV ONE (07:55)
[2021-10-26] MEDS ORDERED: Propofol 200 MG/20 ML SDV ONE ×2 (07:55→10:03)
[2021-10-26] MEDS ORDERED: Ketamine 500 mg/10 ML MDV ONE (07:56)
[2021-10-26] MEDS ORDERED: ePHEDrine 50 MG/ML SDV ONE (07:58)
[2021-10-26] MEDS ORDERED: diphenhydrAMINE 50 MG/ML SDV ONE (08:20)
[2021-10-26] MEDS ORDERED: Dexamethasone 4 MG/ML 5 ML MDV ONE (08:21)
[2021-10-26] MEDS ORDERED: fentaNYL 100 MCG/2 ML SDV IVPUSH PRN (09:13)
[2021-10-26] MEDS ORDERED: HYDROmorphone 0.5 MG/0.5 ML Syringe IVPUSH PRN (09:13)
[2021-10-26] MEDS ORDERED: ePHEDrine 50 MG/ML SDV IVPUSH PRN (09:13)
[2021-10-26] MEDS ORDERED: Metoclopramide 10 MG/2 ML SDV IV PRN (09:13)
[2021-10-26] MEDS ORDERED: Ondansetron 4 MG/2 ML SDV IVPUSH PRN (09:13)
[2021-10-26 12:10] VITALS: BP 125/89
[2021-10-26] MEDS ORDERED: oxyCODONE 5 MG Tab PO PRN (12:10)
[2021-10-26 13:08] VITALS: PULSE 50
== END 2021-10-26 13:35 | disposition home or self-care (01) ==
LOC: JD.SDS 07:40
PROVIDERS: ATTEND Orthopaedic Surgery
DX: M17.12 Unilateral primary osteoarthritis, left knee (principal); I10 Essential (primary) hypertension; I48.20 Chronic atrial fibrillation, unspecified; M10.9 Gout, unspecified; G47.33 Obstructive sleep apnea (adult) (pediatric); E78.00 Pure hypercholesterolemia, unspecified; E66.9 Obesity, unspecified; Z79.899 Other long term (current) drug therapy; Z79.01 Long term (current) use of anticoagulants; Z88.5 Allergy status to narcotic agent; Z68.37 Body mass index [BMI] 37.0-37.9, adult
CPT/HCPCS: 01402; 64447; 73560-26-LT; 73560-LT; 76942; 97110-GP; 97116-GP; 97161-GP; A9270-GY; C1713; C1776; J0171; J0690; J0697; J1100; J1200; J1885; J2250; J2270; J2405; J2704; J2795; J3010; J3370; J3490; J7120

== ENCOUNTER 2021-10-30 10:35 | Emergency (ER) | payer MEDICARE, BC ==
[2021-10-30] MEDS ORDERED: Lidocaine 2% 11 ML Jelly Filled Syringe ONE (10:55)
[2021-10-30] MEDS ORDERED: Lidocaine 2% 11 ML Jelly Filled Syringe MUCMEM STA (11:12)
[2021-10-30 12:47] VITALS: BP 122/70; PULSE 88
== END 2021-10-30 12:40 | disposition home or self-care (01) ==
LOC: JD.ED 10:35
DX: R33.9 Retention of urine, unspecified (principal); E78.00 Pure hypercholesterolemia, unspecified; I10 Essential (primary) hypertension; E66.9 Obesity, unspecified; Z68.37 Body mass index [BMI] 37.0-37.9, adult; Z88.5 Allergy status to narcotic agent; Z79.01 Long term (current) use of anticoagulants; Z79.899 Other long term (current) drug therapy
CPT/HCPCS: 51702; 81001; 99284; A9270

== ENCOUNTER 2021-11-02 17:01 | Emergency (ER) | payer MEDICARE, BC ==
[2021-11-02] MEDS ORDERED: Lidocaine 2% 11 ML Jelly Filled Syringe ONE (17:31)
[2021-11-02 17:50] VITALS: BP 136/98; PULSE 85
[2021-11-02] MEDS ORDERED: Levofloxacin 250 MG Tab PO ONE (18:17)
[2021-11-02] MEDS ORDERED: Lidocaine 2% 11 ML Jelly Filled Syringe MUCMEM ONE (18:18)
== END 2021-11-02 18:58 | disposition home or self-care (01) ==
LOC: JD.ED 17:01
DX: N40.1 Benign prostatic hyperplasia with lower urinary tract symptoms (principal); R33.8 Other retention of urine; E78.00 Pure hypercholesterolemia, unspecified; I10 Essential (primary) hypertension; E66.9 Obesity, unspecified; Z68.37 Body mass index [BMI] 37.0-37.9, adult; Z88.5 Allergy status to narcotic agent; Z79.01 Long term (current) use of anticoagulants; Z79.899 Other long term (current) drug therapy
CPT/HCPCS: 51702; 99283; A9270

== ENCOUNTER 2021-12-09 16:46 | Emergency (ER) | payer MEDICARE, BC ==
[2021-12-09] MEDS ORDERED: Ondansetron 4 MG/2 ML SDV IVPUSH ONE (17:09)
[2021-12-09] MEDS ORDERED: Sodium Chloride 0.9% 1,000 ML IV ONE ×3 (17:09→20:48)
[2021-12-09] MEDS ORDERED: Sodium Chloride 0.9% 10 ML Syringe FLUSH PRN (17:09)
[2021-12-09 17:52] LABS: CORONAVIRUS COVID-19 NAA NEGATIVE (NEGATIVE)
[2021-12-09] MEDS ORDERED: Levofloxacin/Dextrose 5%-Water 750 MG in Premix Bag 1 BAG IV ONE (19:41)
[2021-12-09] MEDS ORDERED: Furosemide 40 MG/4 ML VIAL IVPUSH ONE (19:51)
[2021-12-09 20:32] VITALS: PULSE 102
[2021-12-09] MEDS ORDERED: Ondansetron 4 MG Tab.DIS PO ONE (21:29)
[2021-12-10 01:46] VITALS: BP 113/97
== END 2021-12-09 22:00 | disposition home or self-care (01) ==
LOC: JD.ED 16:46
DX: N30.00 Acute cystitis without hematuria (principal); I10 Essential (primary) hypertension; I48.91 Unspecified atrial fibrillation; E78.00 Pure hypercholesterolemia, unspecified; Z88.6 Allergy status to analgesic agent; Z68.35 Body mass index [BMI] 35.0-35.9, adult; Z20.822 Contact with and (suspected) exposure to COVID-19
CPT/HCPCS: 0240U; 36415; 74176; 80053; 81001; 83605; 85025; 86140; 87040; 87086; 96361; 96365; 96375; 99284; A9270; J1940; J1956; J2405; J3490; J7030; 87088; 87186

== ENCOUNTER 2021-12-11 14:53 | Emergency (ER) | payer MEDICARE, BC ==
[2021-12-11 15:04] VITALS: BP 125/78; PULSE 93
[2021-12-11] MEDS ORDERED: Sodium Chloride 0.9% 10 ML Syringe FLUSH PRN (15:33)
[2021-12-11] MEDS ORDERED: Sodium Chloride 0.9% 1,000 ML IV ONE ×2 (15:36→17:11)
[2021-12-11] MEDS ORDERED: Potassium Chloride 20 MEQ Tab.ER PO ONE (16:14)
[2021-12-11] MEDS: Potassium Chloride 10 MEQ in Premix Bag 1 BAG IV SCH ×4 (16:37→19:42)
== END 2021-12-11 21:00 | disposition home or self-care (01) ==
LOC: JD.ED 14:53
DX: N40.1 Benign prostatic hyperplasia with lower urinary tract symptoms (principal); R33.8 Other retention of urine; E87.6 Hypokalemia; M10.9 Gout, unspecified; E66.9 Obesity, unspecified; Z68.35 Body mass index [BMI] 35.0-35.9, adult; Z88.5 Allergy status to narcotic agent; Z79.01 Long term (current) use of anticoagulants; Z79.899 Other long term (current) drug therapy
CPT/HCPCS: 36415; 51702; 80053; 81001; 83605; 83735; 85025; 86140; 87086; 96361; 96365; 96366; 99285; A9270; J3480; J3490; J7030; 99283

== ENCOUNTER 2022-09-09 15:19 | Emergency (ER) | payer MEDICARE, BC ==
[2022-09-09 15:34] VITALS: BP 159/82; PULSE 50
[2022-09-09] MEDS ORDERED: Diphtheria,Pertussis(Acell),Tetanus Vaccine 0.5 ML Syringe IM ONE (15:57)
== END 2022-09-09 17:25 | disposition home or self-care (01) ==
LOC: JD.ED 15:19
DX: S61.011A Laceration without foreign body of right thumb without damage to nail, initial encounter (principal); I48.91 Unspecified atrial fibrillation; E78.00 Pure hypercholesterolemia, unspecified; I10 Essential (primary) hypertension; E66.9 Obesity, unspecified; Z88.5 Allergy status to narcotic agent; Z79.899 Other long term (current) drug therapy; Z79.01 Long term (current) use of anticoagulants; Z23 Encounter for immunization; W22.8XXA Striking against or struck by other objects, initial encounter; Y92.89 Other specified places as the place of occurrence of the external cause; Y99.0 Civilian activity done for income or pay
CPT/HCPCS: 12001; 73130-26-RT; 73130-RT; 90471; 90715; 99283